=== PATIENT | female | born 1990 | race Caucasian/White ===

== ENCOUNTER → 2024-12-21 15:56 | Outpatient (REF) | payer BC, SELFPAY | LOC: PNTC 15:56 | PROVIDERS: ATTENDING PHYSICIAN Obstetrics & Gynecology | DX: O26.843 Uterine size-date discrepancy, third trimester (principal) | CPT/HCPCS: 76816 ==

== ENCOUNTER 2025-01-22 06:39 | Inpatient (IN) | payer BC, SELFPAY ==
[2025-01-22 06:49] VITALS: BMI 26.6
[2025-01-22 07:45] LABS: % Basophils 0.5 % (0-2); % Eosinophils 0.2 % (0-6); % Immature Granulocytes 0.9 % (0-0.5); % Lymphocytes 13.3 % (20.5-51.1); % Monocytes 5.4 % (1.7-9.3); % Neutrophils 79.7 % (42.2-75.2); Absolute Basophils 0.1 10^3/uL (0-0.2); Absolute Immature Granulocytes 0.1 10^3/uL (0-0.05); Absolute Lymphocytes 1.7 10^3/uL (1.2-3.4); Absolute Monocytes 0.7 10^3/uL (0.1-0.6); Absolute Neutrophils 10.4 10^3/uL (1.4-6.5); Hemoglobin 12.2 g/dL (12.0-16.0); Mean Corp Hgb Conc. 34.9 g/dL (33.0-37.0); Mean Corpuscular Hgb 33.2 pg (27.0-31.0); Mean Corpuscular Volume 95.1 fL (81.0-99.0); Mean Platelet Volume 9.8 fL (7.4-10.4); Nucleated Red Blood Cells % 0 %; Platelet Count 271 10^3/uL (130-400); Red Blood Cell Count 3.68 10^6/uL (4.20-5.40); Red Cell Dist. Width 12.6 % (11.5-14.5); White Blood Cell Count 13.1 10^3/uL (4.8-10.8)
[2025-01-22] MEDS: PENICILLIN 110 UNITS IV (07:48)
[2025-01-22] MEDS: LR 1000 IV ×2 (07:49→17:57)
[2025-01-22] MEDS: PENICILLIN 55 UNITS IV ×3 (11:53→19:48)
[2025-01-22] MEDS: FENTANYL/BUPIVACAINE 100 EPIDURAL ×2 (12:45→21:53)
[2025-01-22] MEDS: SUBLIMAZE 100 MCG EPIDURAL (12:45)
[2025-01-22] MEDS: MOTRIN 600 MG PO (23:47)
[2025-01-23 04:30] LABS: Hematocrit 31.4 % (37.0-47.0); Hemoglobin 10.7 g/dL (12.0-16.0)
[2025-01-23] MEDS: MOTRIN 600 MG PO ×4 (06:05→23:20)
[2025-01-23] MEDS: FEOSOL 325 MG PO (09:34)
[2025-01-23] MEDS: PRENATAL PLUS 1 TABLET PO (09:34)
[2025-01-23] MEDS: TYLENOL 650 MG PO ×3 (12:47→22:22)
[2025-01-24] MEDS: TYLENOL 650 MG PO (05:47)
[2025-01-24] MEDS: MOTRIN 600 MG PO (05:48)
[2025-01-24] MEDS: PRENATAL PLUS 1 TABLET PO (08:18)
[2025-01-24] MEDS: FEOSOL 325 MG PO (08:18)
== END 2025-01-24 15:21 | disposition home or self-care (01) | DRG 807 ==
LOC: LDRP 06:39
PROVIDERS: Obstetrics & Gynecology; Student in an Organized Health Care Education/Training Program; ADMITTING PHYSICIAN Obstetrics & Gynecology; FAMILY PHYSICIAN Family Medicine
PROC: 0KQM0ZZ Repair Perineum Muscle, Open Approach (ICD-10-PCS; 2025-01-22)
PROC: 10907ZC Drainage of Amniotic Fluid, Therapeutic from Products of Conception, Via Natural or Artificial Opening (ICD-10-PCS; 2025-01-22)
PROC: 10E0XZZ Delivery of Products of Conception, External Approach (ICD-10-PCS; 2025-01-22)
PROC: 4A1HXCZ Monitoring of Products of Conception, Cardiac Rate, External Approach (ICD-10-PCS; 2025-01-22)
DX: O99.824 Streptococcus B carrier state complicating childbirth (principal); Z37.0 Single live birth; Z3A.39 39 weeks gestation of pregnancy; O70.1 Second degree perineal laceration during delivery; O76 Abnormality in fetal heart rate and rhythm complicating labor and delivery
CPT/HCPCS: 36415; 85014; 85018; 85025; 86780; 86850; 86900; 86901